=== PATIENT | female | born 2000 | race African-American/Black ===

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

== ENCOUNTER 2022-08-18 10:51 | Emergency (ER) | payer OTHER ==
[2022-08-18 10:59] VITALS: BP 106/64; PULSE 65; RESP 18; TEMP 98.4; BMI 31.1
[2022-08-18] MEDS ORDERED: KETOROLAC TROMETHAMINE 30 MG/1 ML VIAL IM ONE (12:07)
[2022-08-18] MEDS ORDERED: KETOROLAC TROMETHAMINE 30 MG/1 ML VIAL ONE (12:11)
== END 2022-08-18 13:51 | disposition home or self-care (01) ==
LOC: JERFT 10:51 → JER 10:51 → JERFT 13:51
PROC: 3E0233Z Introduction of Anti-inflammatory into Muscle, Percutaneous Approach (ICD-10-PCS; principal; 2022-08-18)
DX: R05.9 Cough, unspecified (principal); R13.10 Dysphagia, unspecified; J02.9 Acute pharyngitis, unspecified
CPT/HCPCS: 87651; 99284-25

== ENCOUNTER 2024-09-05 15:29 | Emergency (ER) | payer OTHER ==
[2024-09-05 15:52] VITALS: TEMP 98; BMI 27.8
[2024-09-05] MEDS ORDERED: FAMOTIDINE 20 MG/50 ML IVPB 20 MG/50 ML MG IVPB ONE (17:41)
[2024-09-05] MEDS ORDERED: ACETAMINOPHEN INJECTION 100 ML ONE (17:41)
[2024-09-05] MEDS: ACETAMINOPHEN 1000 MG/100 ML BAG IVPB ONE (18:06)
[2024-09-05] MEDS: SODIUM CHLORIDE 0.9% 500 ML INFUS.BAG IV ONE (18:06)
[2024-09-05] MEDS: FAMOTIDINE 20 MG/50 ML IVPB 20 MG/50 ML MG IVPB ONE (18:07)
[2024-09-05 18:15] LABS: ABSOLUTE IMMATURE GRANULOCYTES 0.01 x10^3/uL (0.0-0.031); BASOPHILS # 0.03 x10^3/uL (0.01-0.08); EOSINOPHIL % 0.2 % (0.7-5.8); EOSINOPHILS # 0.01 x10^3/uL (0.04-0.36); MCHC 32.9 g/dl (32.2-35.5); MEAN CELL VOLUME 89.9 fl (79.4-94.8); MEAN PLT VOLUME 9.6 fl (9.4-12.3); MONOCYTE # 0.75 x10^3/uL (0.24-0.86); MONOCYTE % 16.2 % (4.7-12.5); RDW 14.1 % (12.1-16.5)
[2024-09-05 18:24] LABS: INR 1.55 (0.83-1.09); PROTHROMBIN TIME (PATIENT) 17.1 SEC (9.7-13.0)
[2024-09-05 18:26] LABS: ACTIVATED PTT 30.3 SECONDS (25.2-36.5)
[2024-09-05 18:38] LABS: CO2 28.0 mmol/L (21-32); GLUCOSE,RANDOM 81.0 mg/dL (74-106)
[2024-09-05 18:41] LABS: CREATININE 0.7 mg/dL (0.55-1.3); SGOT/AST 19.0 U/L (15-37); SGPT/ALT 20.0 U/L (13-61)
[2024-09-05 18:42] LABS: TOT PROT 7.6 g/dl (6.4-8.2)
[2024-09-05 18:44] LABS: ALK PHOS 54.0 U/L (45-117)
[2024-09-05 19:22] LABS: HCG,QUALITATIVE URINE Negative
[2024-09-05 19:30] LABS: HCV DIAGNOSTIC IN-HOUSE W/RFLX NON-REACTIVE (NONREACTIVE); HIV INTERPRETATION NEGATIVE (NEGATIVE)
[2024-09-05 19:42] LABS: URINE COLOR YELLOW
[2024-09-05 19:43] LABS: URINE APPEARANCE CLOUDY; URINE BILIRUBIN NEGATIVE (NEGATIVE); URINE GLUCOSE (UA) NEGATIVE (NEGATIVE); URINE KETONE TRACE (NEGATIVE); URINE NITRITE POSITIVE (NEGATIVE); URINE PROTEIN 30 (NEGATIVE); URINE UROBILINOGEN 1.0 mg/dL (0.2-1.0)
[2024-09-05 19:44] LABS: URINE LEUK ESTERASE 2+ (NEGATIVE)
[2024-09-05] MEDS ORDERED: CEFTRIAXONE 1 GM/50 ML BAG ONE (20:49)
[2024-09-05] MEDS: CEFTRIAXONE 1 GM in DEXTROSE 5%-WATER - 50 ML IVPB ONE (21:13)
[2024-09-05 22:39] VITALS: BP 114/71; PULSE 62; RESP 16
== END 2024-09-05 23:02 | disposition home or self-care (01) ==
LOC: JER 15:29
PROC: 3E033GC Introduction of Other Therapeutic Substance into Peripheral Vein, Percutaneous Approach (ICD-10-PCS; principal; 2024-09-05)
PROC: 3E03329 Introduction of Other Anti-infective into Peripheral Vein, Percutaneous Approach (ICD-10-PCS; 2024-09-05)
PROC: 3E033NZ Introduction of Analgesics, Hypnotics, Sedatives into Peripheral Vein, Percutaneous Approach (ICD-10-PCS; 2024-09-05)
DX: N30.00 Acute cystitis without hematuria (principal); R10.31 Right lower quadrant pain; M79.10 Myalgia, unspecified site; R11.10 Vomiting, unspecified; R31.9 Hematuria, unspecified
CPT/HCPCS: 36415; 74177-TC; 76830-TC; 80053; 81003; 83690; 83735; 84703; 85025; 85610; 85730; 86803; 86850; 86900; 86901; 87086; 87389; 87637-QW; 99285-25; Q9967